=== PATIENT | male | born 1965 | race Caucasian/White ===

== ENCOUNTER 2018-07-23 11:42 | Inpatient (IN) | payer OTHER ==
[~2018-07-23] VITALS: Ht 170.2 cm; Wt 93.6 kg
[2018-07-23 11:50] VITALS: Ht 170.2 cm; Wt 93.6 kg
[2018-07-23 13:27] LABS: CALCIUM 9.2 mg/dL (8.5-10.1); CARBON DIOXIDE 28.1 mmol/L (21-32); CHLORIDE SERUM 101 mmol/L (98-107); CREATININE SERUM 0.7 mg/dL (0.7-1.3); GFR1 > 60 mL/min; GLUCOSE SERUM 104 mg/dL (74-106); POTASSIUM SERUM 3.7 mmol/L (3.5-5.1); SODIUM SERUM 137 mmol/L (136-145)
[2018-07-23 13:30] LABS: ALBUMIN 3.9 g/dL (3.4-5.0); ALKALINE PHOSPHATASE 108 U/L (46-116); ALT/SGPT 78 U/L (16-63); AST/SGOT 154 U/L (15-37); BILIRUBIN TOTAL 0.8 mg/dL (0.20-1.00); CHOLESTEROL 156 mg/dL (<200); LIPASE 193 IU/L (73-393); TRIGLYCERIDES 65 mg/dL (<150)
[2018-07-23 13:30] LABS: UA SPECIFIC GRAVITY 1.025 (1.005-1.035); microscopic required? YES; urine erythrocyte 3+ (NEGATIVE)
[2018-07-23 13:32] LABS: BASOPHIL % 0.6 % (0-2); CHOLESTEROL/HDL RATIO 4.7; HDL CHOLESTEROL 33 mg/dL (40-60); RED CELL DISTRIBUTION WIDTH 12.4 % (11.5-14.5); TOTAL PROTEIN, SERUM 9.2 g/dL (6.4-8.2)
[2018-07-23 13:34] LABS: PLATELET COUNT 2 x10^3mcL (130-400)
[2018-07-23 13:40] LABS: FREE T4 1.32 ng/dL (0.76-1.46); FREE THYROXINE INDEX 3.1 ug/dL (1.4-4.5)
[2018-07-23 13:48] LABS: T3 TOTAL 1.19 ng/mL
[2018-07-23 15:01] LABS: PHOSPHOROUS 3.5 mg/dL (2.5-4.9)
[2018-07-23 15:03] LABS: AMPHETAMINE QUAL UR NONE DETECTED (See below)
[2018-07-23 15:09] VITALS: BP 167/99
[2018-07-23 20:28] LABS: BASOPHIL % 0.4 % (0-2); RED CELL DISTRIBUTION WIDTH 12.4 % (11.5-14.5)
[2018-07-23 20:36] LABS: PLATELET COUNT 12 x10^3mcL (130-400)
[2018-07-23 21:16] VITALS: BP 146/86
[2018-07-24 06:45] VITALS: BP 153/91
[2018-07-24 09:09] LABS: CALCIUM 8.9 mg/dL (8.5-10.1); CARBON DIOXIDE 27.8 mmol/L (21-32); CHLORIDE SERUM 102 mmol/L (98-107); CREATININE SERUM 0.7 mg/dL (0.7-1.3); GFR1 > 60 mL/min; GLUCOSE SERUM 112 mg/dL (74-106); MAGNESIUM 1.9 mg/dL (1.8-2.4); PHOSPHOROUS 3.6 mg/dL (2.5-4.9); POTASSIUM SERUM 3.7 mmol/L (3.5-5.1); SODIUM SERUM 138 mmol/L (136-145)
[2018-07-24 09:14] LABS: BASOPHIL % 0.5 % (0-2); RED CELL DISTRIBUTION WIDTH 12.4 % (11.5-14.5)
[2018-07-24 09:29] LABS: PLATELET COUNT 3 x10^3mcL (130-400)
[2018-07-24 10:04] VITALS: BP 127/51
[2018-07-24 12:33] LABS: BASOPHIL % 0.6 % (0-2); RED CELL DISTRIBUTION WIDTH 12.5 % (11.5-14.5)
[2018-07-24 12:35] VITALS: BP 147/82
[2018-07-24 12:43] LABS: PLATELET COUNT 4 x10^3mcL (130-400)
[2018-07-24 17:22] VITALS: BP 159/93
[2018-07-24 17:43] VITALS: BP 147/90
[2018-07-24 20:52] VITALS: BP 155/92
[2018-07-25 04:44] VITALS: BP 156/88
[2018-07-25 06:19] LABS: BASOPHIL % 0.1 % (0-2); RED CELL DISTRIBUTION WIDTH 12.2 % (11.5-14.5)
[2018-07-25 06:36] LABS: CALCIUM 9.1 mg/dL (8.5-10.1); CARBON DIOXIDE 23.2 mmol/L (21-32); CHLORIDE SERUM 100 mmol/L (98-107); CREATININE SERUM 0.7 mg/dL (0.7-1.3); GFR1 > 60 mL/min; GLUCOSE SERUM 151 mg/dL (74-106); MAGNESIUM 1.8 mg/dL (1.8-2.4); PHOSPHOROUS 4.1 mg/dL (2.5-4.9); POTASSIUM SERUM 3.9 mmol/L (3.5-5.1); SODIUM SERUM 136 mmol/L (136-145)
[2018-07-25 06:46] LABS: PLATELET COUNT 4 x10^3mcL (130-400)
[2018-07-25 09:07] VITALS: BP 160/92
[2018-07-25 12:53] VITALS: BP 141/85
[2018-07-25 17:07] VITALS: BP 148/93
[2018-07-25 20:42] VITALS: BP 151/91
[2018-07-26 05:01] VITALS: BP 144/85
[2018-07-26 09:00] VITALS: BP 150/87
[2018-07-26 10:24] LABS: CARBON DIOXIDE 25.4 mmol/L (21-32); CHLORIDE SERUM 100 mmol/L (98-107); CREATININE SERUM 0.8 mg/dL (0.7-1.3); GFR1 > 60 mL/min; GLUCOSE SERUM 132 mg/dL (74-106); POTASSIUM SERUM 3.6 mmol/L (3.5-5.1); SODIUM SERUM 132 mmol/L (136-145)
[2018-07-26 11:29] LABS: RED CELL DISTRIBUTION WIDTH 12.2 % (11.5-14.5)
[2018-07-26 11:43] LABS: BASOPHIL % 0 % (0-2); PLATELET COUNT 4 x10^3mcL (130-400)
[2018-07-26 12:18] VITALS: BP 147/88
[2018-07-26 15:31] VITALS: BP 149/92
[2018-07-26 20:27] VITALS: BP 143/81
[2018-07-27 05:34] VITALS: BP 140/96
[2018-07-27 06:36] LABS: RED CELL DISTRIBUTION WIDTH 12.3 % (11.5-14.5)
[2018-07-27 06:55] LABS: CARBON DIOXIDE 21.9 mmol/L (21-32); CHLORIDE SERUM 103 mmol/L (98-107); CREATININE SERUM 0.7 mg/dL (0.7-1.3); GFR1 > 60 mL/min; GLUCOSE SERUM 136 mg/dL (74-106); MAGNESIUM 2.3 mg/dL (1.8-2.4); PHOSPHOROUS 4.5 mg/dL (2.5-4.9); POTASSIUM SERUM 4.2 mmol/L (3.5-5.1); SODIUM SERUM 134 mmol/L (136-145)
[2018-07-27 08:41] LABS: BASOPHIL % 0 % (0-2); PLATELET COUNT 10 x10^3mcL (130-400)
[2018-07-27 09:09] VITALS: BP 148/82
[2018-07-27 12:43] VITALS: BP 159/81
[2018-07-27 15:44] VITALS: BP 146/90
[2018-07-27 18:23] VITALS: BP 150/82
[2018-07-27 20:34] VITALS: BP 158/88
[2018-07-28 05:54] VITALS: BP 152/86
[2018-07-28 06:58] LABS: BASOPHIL % 0.1 % (0-2)
[2018-07-28 07:13] LABS: CALCIUM 8.9 mg/dL (8.5-10.1); CARBON DIOXIDE 23.9 mmol/L (21-32); CHLORIDE SERUM 101 mmol/L (98-107); CREATININE SERUM 0.8 mg/dL (0.7-1.3); GFR1 > 60 mL/min; GLUCOSE SERUM 129 mg/dL (74-106); MAGNESIUM 2.2 mg/dL (1.8-2.4); PHOSPHOROUS 4.6 mg/dL (2.5-4.9); POTASSIUM SERUM 4.1 mmol/L (3.5-5.1); SODIUM SERUM 134 mmol/L (136-145)
[2018-07-28 07:38] LABS: PLATELET COUNT 55 x10^3mcL (130-400)
[2018-07-28 08:43] VITALS: BP 134/82
[2018-07-28 11:57] VITALS: BP 128/83
[2018-07-28] MEDS ORDERED: ZES10 PO (12:05)
[2018-07-28 12:35] VITALS: BP 134/82
== END 2018-07-28 15:15 | disposition home or self-care (01) | DRG 661 ==
LOC: ED 11:42 → DU 13:56
PROVIDERS: Family Medicine; Internal Medicine; Specialist
PROC: 30233R1 Transfusion of Nonautologous Platelets into Peripheral Vein, Percutaneous Approach (ICD-10-PCS; principal; 2018-07-23)
DX: D69.59 Other secondary thrombocytopenia (principal); N17.0 Acute kidney failure with tubular necrosis; K70.30 Alcoholic cirrhosis of liver without ascites; K70.10 Alcoholic hepatitis without ascites; H11.33 Conjunctival hemorrhage, bilateral; F12.10 Cannabis abuse, uncomplicated; R74.0 Nonspecific elevation of levels of transaminase and lactic acid dehydrogenase [LDH]; I10 Essential (primary) hypertension; E03.9 Hypothyroidism, unspecified; R31.9 Hematuria, unspecified; Z68.31 Body mass index [BMI] 31.0-31.9, adult
CPT/HCPCS: 83880; 84439; G0480; J1200; J1563; J1940; J7030; J7040; J7050; J8540; P9035; Q0092; Q0163